=== PATIENT | male | born 1970 | race Caucasian/White ===

== ENCOUNTER 2018-08-22 16:59 | Emergency (ER) | payer SELFPAY ==
[~2018-08-22] VITALS: Ht 172.7 cm; Wt 98.3 kg
[2018-08-22 17:05] VITALS: BP 162/85; PULSE 73; RESP 20; Ht 172.7 cm; Wt 98.3 kg
[2018-08-22] MEDS ORDERED: IBUP-1542 PO (19:04)
[2018-08-22] MEDS ORDERED: SULF1TAB31 PO (19:04)
--- NOTE | 2018-08-22 19:05 | ERD ---
ER Documentation Chief Complaint Chief Complaint Patient has concerns about a lump/swelling on the back of the head x 4 days HPI 48-year-old male presents with a tender bump on the back of his head noticed 4 days ago. May have started with a small pimple. Denies any fevers, vomiting, shortness breath or chest pain. ROS All systems reviewed and are negative except as per history of present illness. Medications Home Meds Active Scripts Ibuprofen* (Motrin*) 600 Mg Tab, 600 MG PO Q6, #15 TAB Prov:JAMES NGUYEN MD 08/22/18 Sulfamethoxazole/Trimethoprim* (Bactrim Ds* Tablet) 1 Each Tablet, 1 TAB PO BID for 10 Days, TAB Prov:JAMES NGUYEN MD 08/22/18 Allergies Allergies: Coded Allergies: No Known Allergy (Unverified , 08/22/18) PMhx/Soc Medical and Surgical Hx: pt denies Medical Hx, pt denies Surgical Hx Hx Alcohol Use: Yes (occasional) Hx Substance Use: No Hx Tobacco Use: No Smoking Status: Never smoker FmHx Family History: No diabetes, No coronary disease, No other Physical Exam Vitals Vital Signs Date Temp Pulse Resp B/P (MAP) Pulse Ox O2 O2 Flow FiO2 Time Delivery Rate 08/22/18 97.6 73 20 162/85 96 17:05 (110) Physical Exam Const: No acute distress Head: Atraumatic. On the occipital area of the scalp there is a superficial mobile erythematous lesion without fluctuance. There is no pustules or drainage. Eyes: Normal Conjunctiva ENT: Normal External Ears, Nose and Mouth. Neck: Full range of motion. No meningismus. Resp: Clear to auscultation bilaterally Cardio: Regular rate and rhythm, no murmurs Abd: Soft, non tender, non distended. Normal bowel sounds Skin: No petechiae or rashes Back: No midline or flank tenderness Ext: No cyanosis, or edema Neur: Awake and alert Psych: Normal Mood and Affect Procedures/MDM Patient presents with signs and symptoms of an irritated or possibly early infected sebaceous cyst or superficial skin lesion. Will be treated with Bactrim, ibuprofen, instructions are warm compresses and instructions for 2-4-day wound check for possible incision and drainage. He should always return sooner for worsening redness, fevers, new or worsening symptoms. Departure Diagnosis: Primary Impression: Sebaceous cyst Condition: Stable Patient Instructions: Sebaceous Cyst, Infected (Abx Tx) Additional Instructions: Apply warm compresses at home. Recheck in 2-4 days for possible incision and drainage. Recheck otherwise for new or worsening symptoms. JAMES NGUYEN MD Aug 22, 2018 19:05
== END 2018-08-22 19:26 | disposition home or self-care (01) ==
LOC: FTE 16:59
DX: L72.3 Sebaceous cyst (principal)
CPT/HCPCS: 99283

== ENCOUNTER 2018-08-26 18:34 | Emergency (ER) | payer SELFPAY ==
[~2018-08-26] VITALS: Wt 99.5 kg
[~2018-08-26 18:34] MED LIST: IBUP-1542 PO; SULF1TAB31 PO
[2018-08-26 18:44] VITALS: BP 133/80; PULSE 79; RESP 18
[2018-08-26] MEDS ORDERED: ACETAMINOPHEN 325 MG TAB PO ONE (19:30)
[2018-08-26] MEDS ORDERED: LIDOCAINE 1% (MDV) 20 ML INJ SC ONE (19:30)
[2018-08-26] MEDS ORDERED: IBUP-1542 PO (19:32)
[2018-08-26] MEDS ORDERED: ACYC800T PO (19:32)
[2018-08-26] MEDS ORDERED: DOXY100C42 PO (19:32)
--- NOTE | 2018-08-26 19:35 | ERD ---
ER Documentation Chief Complaint Chief Complaint CYST ON BACK OF HEAD X'S 10 DAYS, PAIN INCREASING HPI 48-year-old male presents for recheck on lump on the back of his head. Seen by me approximately 10 days ago. He completed a course of doxycycline. He has persistent pain although the swelling is decreased. Over the last 2 days he is had some skin lesions on the right trapezius area and behind the right ear which are painful and a burning sensation of the area. Denies any fevers, vomiting, shortness breath or chest pain. ROS All systems reviewed and are negative except as per history of present illness. Medications Home Meds Active Scripts Ibuprofen* (Motrin*) 600 Mg Tab, 600 MG PO Q6, #15 TAB Prov:JAMES NGUYEN MD 08/26/18 Acyclovir* (Acyclovir*) 800 Mg Tablet, 800 MG PO 5 TIMES DAILY for 7 Days, TAB Prov:JAMES NGUYEN MD 08/26/18 Doxycycline Monohydrate (Doxycycline Monohydrate) 100 Mg Capsule, 100 MG PO BID for 7 Days, CAP Prov:JAMES NGUYEN MD 08/26/18 Ibuprofen* (Motrin*) 600 Mg Tab, 600 MG PO Q6, #15 TAB Prov:JAMES NGUYEN MD 08/22/18 Sulfamethoxazole/Trimethoprim* (Bactrim Ds* Tablet) 1 Each Tablet, 1 TAB PO BID for 10 Days, TAB Prov:JAMES NGUYEN MD 08/22/18 Allergies Allergies: Coded Allergies: No Known Allergy (Unverified , 08/22/18) PMhx/Soc Medical and Surgical Hx: pt denies Medical Hx History of Surgery: Yes (Appendectomy, Pulmonic stenosis) Anesthesia Reaction: No Hx Alcohol Use: Yes (occasional) Hx Substance Use: No Hx Tobacco Use: No Smoking Status: Never smoker FmHx Family History: No diabetes, No coronary disease, No other Physical Exam Vitals Vital Signs Date Temp Pulse Resp B/P (MAP) Pulse Ox O2 O2 Flow FiO2 Time Delivery Rate 08/26/18 97.4 79 18 133/80 96 18:44 (97) Physical Exam Const: No acute distress Head: Atraumatic. Approximately 1.5 cm superficial lesion with a dried pustule. There is some surrounding redness without induration or streaking. There is a small central area of fluctuance. Eyes: Normal Conjunctiva ENT: Normal External Ears, Nose and Mouth. Neck: Full range of motion. No meningismus. Resp: Clear to auscultation bilaterally Cardio: Regular rate and rhythm, no murmurs Abd: Soft, non tender, non distended. Normal bowel sounds Skin: No petechiae or rashes patient has erythematous small vesicular lesions present on the right lower neck and also on the right posterior auricular area. He has some tenderness diffusely over the dermatomal area. Back: No midline or flank tenderness Ext: No cyanosis, or edema Neur: Awake and alert Psych: Normal Mood and Affect Results 24 hrs Current Medications Medications Dose Sig/Shantel Start Time Status Last (Trade) Ordered Route PRN Stop Time Admin Dose Reason Admin 650 mg ONCE ONCE 08/26/18 DC 08/26/18 Acetaminophen PO 19:30 08/26/18 19:10 (Tylenol 19:31 Tab) Lidocaine 20 ml ONCE ONCE 08/26/18 DC (Xylocaine SC 19:30 08/26/18 1% (Mdv) 20 19:31 ml) 8 mg ONCE ONCE 08/26/18 DC 08/26/18 Dexamethasone PO 20:00 08/26/18 19:46 (Decadron) 20:00 Procedures/MDM Patient presents with signs and symptoms of what appears to be folliculitis on the scalp in addition to dermatomal vesicular rash consistent with shingles. Scalp lesion does not appear to be a lymph node or shingles type lesion. Procedure note-scalp area was prepped with Betadine. 2 cc lidocaine was used for local infiltration. #11 scalpel was used to incise the wound. Minimal mostly blood was expressed. Possibly a small amount of sebaceous material. Neosporin was applied to the wound. I She will be treated with continuation of doxycycline, 1 dose of Decadron here, new prescription for acyclovir, ibuprofen,. He will be given instructions on return precautions for worsening redness, fevers, new worsening symptoms. The patient was stable with no new complaints during the ER course. Clinically, there is no current evidence to suggest meningitis, sepsis, acute abdomen, pneumonia, stroke, acute coronary syndrome, pulmonary embolism, aortic dissection or any other emergent condition appearing to require further evaluation or hospitalization. Patient counseled regarding my diagnostic impression and care plan. Prior to discharge all questions answered. Pt agrees with treatment plan and understands strict return precautions. Pt is instructed to follow up with primary care provider within 24-48 hours. Precautionary instructions provided including instructions to return to the ER if not improving or for any worsening or changing symptoms or concerns. Departure Diagnosis: Primary Impression: Shingles Herpes zoster complications: without complications Qualified Codes: B02.9 - Zoster without complications Additional Impression: Abscess Condition: Stable Patient Instructions: Shingles (Herpes Zoster), Folliculitis Additional Instructions: Appears to be a small abscess in addition to shingles. Recheck for new or worsening symptoms with primary care doctor. JAMES NGUYEN MD Aug 26, 2018 19:35
[2018-08-26] MEDS ORDERED: DEXAMETHASONE 4 MG TAB PO ONE (20:00)
== END 2018-08-26 19:50 | disposition home or self-care (01) ==
LOC: FTE 18:34
DX: B02.9 Zoster without complications (principal); L02.811 Cutaneous abscess of head [any part, except face]